=== PATIENT | female | born 1975 | race Caucasian/White ===

== ENCOUNTER 2016-04-29 07:53 | Emergency (ER) | payer OTHER ==
[2016-04-29 08:13] VITALS: BP 114/76
--- NOTE | 2016-05-01 22:41 | UC ---
Throat Pain/Nasal Sukhjinder HPI - HPI Summary HPI Summary: cough, malaise, fatigue, body aches, chills, mild ST and sinus congestion for several days. - History of Current Complaint Chief Complaint: UCRespiratory Stated Complaint: COUGH Time Seen by Provider: 04/29/16 08:27 Hx Obtained From: Patient Hx Last Menstrual Period: 04/20/16 Onset/Duration: Gradual Onset Severity: Mild Pain Intensity: 5 Pain Scale Used: 0-10 Numeric Cough: Nonproductive Associated Signs & Symptoms: Positive: Dysphagia - mild, Hoarseness, Nasal Discharge, Fever - Epiglottits Risk Factors Epiglottis Risk Factors: Negative - Allergies/Home Medications Allergies/Adverse Reactions: Allergies Allergy/AdvReac Type Severity Reaction Status Date / Time Quetiapine [From Seroquel] Allergy Rash Verified 04/29/16 08:07 PMH/Surg Hx/FS Hx/Imm Hx Previously Healthy: Yes - Surgical History Surgical History: Yes Surgery Procedure, Year, and Place: tonsils at age 14 yrs, x 2 - Family History Known Family History: Positive: Cardiac Disease, Diabetes - parents with DM, HTN CAD - Social History Occupation: Employed Full-time Lives: With Family Alcohol Use: None Substance Use Type: None Smoking Status (MU): Never Smoked Tobacco - Immunization History Most Recent Influenza Vaccination: not this season Review of Systems Constitutional: Fever, Chills, Fatigue Skin: Negative Eyes: Negative ENT: Sore Throat, Nasal Discharge Respiratory: Cough Cardiovascular: Negative Gastrointestinal: Negative Genitourinary: Negative Motor: Negative Neurovascular: Negative Musculoskeletal: Negative Neurological: Negative Psychological: Negative All Other Systems Reviewed And Are Negative: Yes Physical Exam Triage Information Reviewed: Yes Appearance: Well-Appearing, No Pain Distress, Well-Nourished Vital Signs: Initial Vital Signs Temp 98.9 F 04/29/16 08:08 Pulse 105 04/29/16 08:08 Resp 16 04/29/16 08:08 BP 114/76 04/29/16 08:08 Pulse Ox 97 04/29/16 08:08 Vital Signs Reviewed: Yes Eye Exam: Normal Eyes: Positive: Conjunctiva Clear ENT: Positive: Hearing grossly normal, Pharyngeal erythema - mild, Nasal congestion, TMs normal, Muffled/hoarse voice - hoarse. Negative: Tonsillar swelling, Tonsillar exudate, Trismus Neck exam: Normal Neck: Positive: Supple Respiratory Exam: Normal Respiratory: Positive: Lungs clear, Normal breath sounds, No respiratory distress, No accessory muscle use Musculoskeletal Exam: Normal Neurological Exam: Normal Psychological Exam: Normal Skin Exam: Normal Throat Pain/Nasal Course/Dx - Differential Dx/Diagnosis Differential Diagnosis/HQI/PQRI: Influenza, URI Provider Diagnoses: URI Discharge - Discharge Plan Condition: Stable Disposition: HOME Prescriptions: Benzonatate CAP* [Tessalon CAP*] 100 mg PO TID PRN #30 cap PRN Reason: Cough Patient Education Materials: Upper Respiratory Infection (ED) Referrals: Dustin Salcedo DO [Primary Care Provider] -
== END 2016-04-29 08:48 | disposition home or self-care (01) ==
LOC: UCCORT 07:53
DX: J06.9 Acute upper respiratory infection, unspecified (principal)
CPT/HCPCS: 99212; G0463